=== PATIENT | male | born 1990 | race Caucasian/White ===

== ENCOUNTER 2018-03-24 14:48 | Emergency (ER) | payer OTHER ==
[~2018-03-24] VITALS: Ht 185.4 cm; Wt 150.0 kg
[~2018-03-24 14:48] MED LIST: DIVA-78 PO; RISP3 PO
[2018-03-24 15:13] VITALS: BP 119/69
== END 2018-03-24 16:11 | disposition home or self-care (01) ==
LOC: EMS 14:49
DX: F25.9 Schizoaffective disorder, unspecified (principal); E66.9 Obesity, unspecified; Z68.41 Body mass index [BMI] 40.0-44.9, adult
CPT/HCPCS: 99284